=== PATIENT | female | born 1990 | race Caucasian/White ===

== ENCOUNTER 2019-06-03 14:59 | Emergency (ER) | payer OTHER, SELFPAY ==
[2019-06-03 15:07] VITALS: BP 99/66; PULSE 100; RESP 14; TEMP 36.8; O2SAT 97
--- NOTE | 2019-06-03 15:07 | ED.URI ---
HPI - URI/Sore Throat General Chief Complaint: Upper Respiratory Infection Stated Complaint: sinus infection Time Seen by Provider: 06/03/19 15:14 Source: patient and RN notes reviewed Mode of arrival: ambulatory Limitations: no limitations History of Present Illness HPI Narrative: 20-year-old female presents with concern for 2-week history of head congestion, facial and teeth pain, ear pressure, headache. Reports she had flu symptoms approximately 2 weeks ago that have mostly resolved besides her sinus symptoms. She reports [id number] medications are not working MD elicited complaint: nasal congestion Related Data Allergies Allergy/AdvReac Type Severity Reaction Status Date / Time No Known Allergies Allergy Unverified 04/20/18 05:16 Review of Systems Review of Systems: Narrative: CONSTITUTIONAL: Denies malaise, chills, sweats, or fever. EYES: Denies visual changes, redness, or discharge. ENT: Reports rhinorrhea, congestion, sinus pain, otalgia and sore throat. CARDIOVASCULAR: Denies chest pain, palpitations, or edema. RESPIRATORY: Denies cough or dyspnea. GASTROINTESTINAL: Denies abdominal pain, nausea, vomiting, diarrhea SKIN: Denies rash or itching. MUSCULOSKELETAL: Denies myalgia. NEUROLOGIC: Report headache. All systems reviewed & are unremarkable except as noted in HPI and below PMFSH Family History Family History (Updated 11/14/14 @ 10:30 by DOCTOR UNKNOWN) Father Hypertension Grandparent Diabetes mellitus Social History Social History Alcohol intake: current Comments At time of signature, agree with nursing past medical, surgical, social and family history. There is no relevant family history pertinent to the presenting complaint Exam Narrative: Exam Narrative: GENERAL: Well-appearing, well-nourished, and in no acute distress. HEAD: Normocephalic EYES: PERRLA, conjunctivae clear ENT: Nares clear, turbinates edematous and erythematous, purulent discharge, sinus tenderness. Mucous membranes moist. TM pearly rock with dull light reflex bilaterally; no tragal tenderness. Oropharynx not erythematous without lesions. Tonsils not enlarged and without exudate, no drooling, no hoarseness, no trismus. NECK: Supple. No lymphadenopathy CHEST: Clear to auscultation, breath sounds equal. No wheezing, rhonchi, rales, or stridor. No respiratory distress, speaks in full sentences. HEART: Regular rate and rhythm. No murmur heard. Normal peripheral pulses. SKIN: Warm, dry, no rash. NEURO: Alert and oriented x3. PSYCH: Normal mood and affect Course Course Emergency Course: Patient is aware of diagnosis, understands and agrees to treatment plan. Anticipatory guidance given. Patient agrees to follow-up as directed and is aware of reasons to seek care at the emergency department. Portions of this record may have been created with voice recognition software Vital Signs Vital signs: Vital Signs Temperature 98.2 F 06/03/19 15:07 Pulse Rate 100 06/03/19 15:07 Respiratory Rate 14 06/03/19 15:07 Blood Pressure 99/66 L 06/03/19 15:07 Pulse Oximetry 97 06/03/19 15:07 Temperature 98.2 F 06/03/19 15:07 Pulse Rate 100 06/03/19 15:07 Respiratory Rate 14 06/03/19 15:07 Blood Pressure 99/66 L 06/03/19 15:07 Pulse Oximetry 97 06/03/19 15:07 Reviewed. MDM - URI/Sore Throat MDM Narrative Medical decision making narrative: Differential diagnosis considered: Strep pharyngitis, allergic rhinitis, upper respiratory tract infection, sinusitis, rhinosinusitis, nasopharyngitis. viral pharyngitis, otitis media, otitis externa, pneumonia, bronchitis, viral cough syndrome, viral syndrome, and influenza. Exam findings show no acute concerns or changes; patient is non-toxic appearing and is in no distress. Patient is appropriate for outpatient treatment and follow-up. Critical Care Time Critical Care Time Critical Care Time: No Discharge Plan Discharge Clinical Impression: Acute bacterial sin
== END 2019-06-03 15:20 | disposition home or self-care (01) ==
PROVIDERS: Emergency Provider Nurse Practitioner
DX: J01.90 Acute sinusitis, unspecified (principal)
CPT/HCPCS: 99213; G0463

== ENCOUNTER 2020-01-21 19:26 | Emergency (ER) | payer OTHER, SELFPAY ==
--- NOTE | ~2020-01-21 | XR_ITS ---
EXAMINATION: XR knee RT 3V EXAM DATE: 01/21/2020 19:50 INDICATION: Initial encounter following injury, with pain of the right knee. TECHNIQUE: Right knee lateral, frontal AP, frontal PA tunnel, sunrise projections. There is no prior study for comparison. FINDINGS: There is acute closed posttraumatic horizontally oriented fracture through the inferior papa e of the patella, with about 3 mm distraction. Small to moderate-sized knee joint lipohemarthrosis. T here is overlying soft tissue swelling. This finding has been indicated, marked on the examination fo r review, clinical correlation. No other acute findings. IMPRESSION: Acute right patellar fracture. Reviewed, dictated and finalized at location A.
--- NOTE | 2020-01-21 19:30 | PC.NURSE ---
PT TAKEN TO RADIOLOGY AND ROOM IN WHEELCHAIR
[2020-01-21 19:31] VITALS: BP 119/77; PULSE 87; RESP 16; TEMP 37.2; O2SAT 100
--- NOTE | 2020-01-21 19:32 | ED.LOWEXIN ---
HPI - Extremity Injury (Lower) General Chief Complaint: Extremity Injury, Lower Stated Complaint: right leg pain due to fall Time Seen by Provider: 01/21/20 19:32 Source: patient Mode of arrival: ambulatory Limitations: no limitations History of Present Illness HPI Narrative: Jillian Chiu is a 29 yo female with no PMH fell on way uphill carrying empty car seat when foot got caught in shoe loop. Fell directly on R knee. Pain is 10/10, swollen medial side patella, unable to stand or bend knee Related Data Home Medications Medication Instructions Recorded Confirmed etonogestrel-ethinyl estradiol 1 vag ring VAGINAL MONTHLY 01/21/20 01/21/20 Allergies Allergy/AdvReac Type Severity Reaction Status Date / Time No Known Allergies Allergy Verified 01/21/20 19:37 Review of Systems Review of Systems: Narrative: CONSTITUTIONAL: Denies fever, chills, sweats. EYES: Denies visual changes, redness, discharge. ENT: Denies rhinorrhea, congestion, sore throat, otalgia. CARDIOVASCULAR: Denies chest pain, palpitations, edema. RESPIRATORY: Denies dyspnea, wheezing, cough GASTROINTESTINAL: Denies abdominal pain, nausea, vomiting, diarrhea. GENITOURINARY: Denies dysuria, hematuria, abnormal discharge SKIN: Denies rash or itching. NEUROLOGIC: Denies numbness, or focal weakness. PSYCHIATRIC: Denies anxiety or depression. R patellar pain and effusion PMFSH Past Medical History Medical History No acute medical problems Family History Family History Father Hypertension Grandparent Diabetes mellitus Social History Social History (Updated 01/21/20 @ 19:42 by Carlie Avalos CNP) Smoking status: Current every day smoker Tobacco type: e-cigarettes/vaping Alcohol intake: current Comments At time of signature, I agree with nursing past medical, surgical, social and family history. There is no relevant family history pertinent to the presenting complaint. Exam Narrative: Exam Narrative: GENERAL: This is a well-nourished, well-developed patient, in moderate distress. HEAD: normocephalic, atraumatic. EYES: Sclera clear/white. Vision is grossly intact. EARS: External ears normal, Hearing grossly intact. NOSE: External nose normal without nasal discharge, nares without redness, no rhinorrhea. THROAT: Mucous membranes moist, NECK: Neck supple, CARDIOVASCULAR: Tachycardic rate and rhythm without murmurs, gallops, or rubs. RESPIRATORY: Clear to auscultation. Breath sounds equal bilaterally. No wheezes, rales, or rhonchi. GASTROINTESTINAL: Abdomen soft, SKIN: warm, intact with no suspicious lesions or rash, good texture and turgor. NEURO: awake, alert, and oriented to person, place and time. There were no obvious focal neurologic abnormalities. Steady gait EXTREMITIES: NR knee pain with medial patellar edema, painful to touch, unable to bend knee- 2+ pedal pulses BACK: Nontender without deformity Course Course Emergency Course: The patient express care for phone to right patella X-ray done- result: acute R patellar fracture Patient continues ice on the wrist immobilizer with crutches Pain medication- hydrocodone D[facility]ed [facility] and her Follow-up with orthopedics on Friday Vital Signs Vital signs: Vital Signs Temperature 99 F 01/21/20 19:31 Pulse Rate 87 01/21/20 19:31 Respiratory Rate 16 01/21/20 19:31 Blood Pressure 119/77 01/21/20 19:31 Pulse Oximetry 100 01/21/20 19:31 Temperature 99 F 01/21/20 19:31 Pulse Rate 87 01/21/20 19:31 Respiratory Rate 16 01/21/20 19:31 Blood Pressure 119/77 01/21/20 19:31 Pulse Oximetry 100 01/21/20 19:31 MDM - Extremity Injury (Lower) Differential Diagnosis Differential diagnosis: Likely fracture of hip, ankle fracture and other (patellar fracture vs patellar effusion) Discharge Plan Discharge Clinical Impression: E
== END 2020-01-21 20:12 | disposition home or self-care (01) ==
PROVIDERS: Emergency Provider Nurse Practitioner; PCP Internal Medicine
DX: S82.031A Displaced transverse fracture of right patella, initial encounter for closed fracture (principal); W01.0XXA Fall on same level from slipping, tripping and stumbling without subsequent striking against object, initial encounter; M25.461 Effusion, right knee; F17.200 Nicotine dependence, unspecified, uncomplicated
CPT/HCPCS: 73562; 99213; G0463; L1830

== ENCOUNTER 2020-02-20 10:40 | Emergency (ER) | payer OTHER, SELFPAY ==
[2020-02-20 10:49] VITALS: BP 108/59; PULSE 78; RESP 20; TEMP 36.9; O2SAT 100
--- NOTE | 2020-02-20 11:00 | ED.GENADULT ---
HPI - General Adult General Chief complaint: Ear Stated complaint: ear pressure Time Seen by Provider: 02/20/20 11:00 Source: patient and RN notes reviewed Mode of arrival: ambulatory Limitations: no limitations History of Present Illness HPI narrative: 29-year-old female complains of bilateral decrease hearing, pressure, clogged feeling, and intermittent dizziness and headache (not the worst of her life) for the past 2 days. Jillian says she was treated at local hospital ED on 02/18/20 for dizziness released with diagnosis of Vertigo on Meclizine and Zofran with some relief. Symptoms continues to increase with ear pressure and clogging feeling. Denies ear itching, ear trauma, trauma to head, syncopal episodes, altered vision, altered speech, confusion, or seizure activity. Denies recent URI symptoms. Exacerbating factors consist of changing position too fast turning head from side to side too fast. Relieving factors is sitting still. No facial swelling. No rhinorrhea and nasal congestion. No high fevers, sore throat, drooling, neck or throat swelling. No chest pain or shortness of breath. Denies nausea, vomiting, and abdominal pain. Tolerating liquids well. Remains active. Denies being , LMP 02/18/20. The patient reports she have not been diagnosed with COVID-19. The patient reports she is not waiting for the results of a COVID-19 lab test. The patient reports she do not have chills, weakness, or fatigue. The patient reports she do not have a new or worsening cough or shortness of breath. The patient reports she do not have any loss of taste or diarrhea. Denies recent traveling. Denies concerns for COVID-19 or exposures been home with limited outdoor exposure except for essential household needs, work, and return home. At this time, patient is not suspected of having COVID-19. Some parts of this dictation were generated by voice recognition software and may contain typographical and/or grammatical inaccuracies. Related Data Home Medications Medication Instructions Recorded Confirmed meclizine 25 mg PO TID PRN 02/20/20 02/20/20 ondansetron HCl 4 mg PO QID PRN 02/20/20 02/20/20 Allergies Allergy/AdvReac Type Severity Reaction Status Date / Time No Known Allergies Allergy Verified 02/20/20 10:59 Review of Systems Review of Systems: Narrative: CONSTITUTIONAL: Denies fever, chills, sweats. EYES: Denies visual changes, redness, discharge. ENT: Complains of bilateral ear pressure, clogged. Denies rhinorrhea, congestion, sore throat, otalgia, tinnitus, decrease hearing. CARDIOVASCULAR: Denies chest pain, palpitations, edema. RESPIRATORY: Denies dyspnea, wheezing, cough. GASTROINTESTINAL: Denies abdominal pain, nausea, vomiting, diarrhea. GENITOURINARY: Denies dysuria, hematuria, abnormal discharge. SKIN: Denies rash or itching. MUSCULOSKELETAL: Denies acute back pain, joint pain, or myalgia. NEUROLOGIC: Denies numbness or focal weakness. Complains of intermittent dizziness, [place]. PSYCHIATRIC: Denies anxiety or depression. All systems reviewed & are unremarkable except as noted in HPI and below. [facility] [place] Past Medical History Medical History (Updated 02/20/20 @ 11:58 by DWIGHT Cruz) Closed fracture of distal pole of patella Hx of migraines No acute medical problems Right patella fracture Surgical History Surgical History (Updated 02/20/20 @ 11:58 by DWIGHT Cruz) No significant past surgical history Family History Family History (Updated 02/20/20 @ 11:59 by DWIGHT Cruz) Father Hypertension Grandparent Diabetes mellitus Mother Alive and well Social History Social History (Updated 02/20/20 @ 12:01 by DWIGHT Cruz) Smoking status: Current every day smoker Tobacco type: e-cigarettes/vaping Second hand tobacco smoke exposure: Yes (Spouse) Alcohol intake: current Substance use: never Living arrangements: with family Additional living arran
[2020-02-20 11:15] VITALS: BP 101/70; PULSE 72
[2020-02-20 11:19] VITALS: BP 97/63; PULSE 77
[2020-02-20 11:21] VITALS: BP 104/75; PULSE 82
== END 2020-02-20 11:25 | disposition home or self-care (01) ==
PROVIDERS: Emergency Provider Nurse Practitioner Family; PCP Internal Medicine
DX: H65.191 Other acute nonsuppurative otitis media, right ear (principal); H81.10 Benign paroxysmal vertigo, unspecified ear; F17.200 Nicotine dependence, unspecified, uncomplicated
CPT/HCPCS: 99213; G0463

== ENCOUNTER 2022-03-04 15:04 | Emergency (ER) | payer BC, OTHER, SELFPAY ==
[2022-03-04 15:12] VITALS: BP 97/78; PULSE 120; RESP 14; TEMP 37.4; O2SAT 98
--- NOTE | 2022-03-04 16:04 | ED.URI ---
HPI - URI/Sore Throat General Chief Complaint: Upper Respiratory Infection Stated Complaint: fever chest hurts thru to her back Time Seen by Provider: 03/04/22 16:05 Source: patient, RN notes reviewed and old records reviewed Mode of arrival: ambulatory Limitations: no limitations History of Present Illness HPI Narrative: 31-year-old female presents to the [facility] with complaints of fever and chest discomfort with deep breathing and coughing. States it started this morning. No treatment prior to arrival. Related Data Home Medications Medication Instructions Recorded Confirmed dextroamphetamine-amphetamine ER PO 03/04/22 10 mg 24hr capsule,extend release mirtazapine 7.5 mg tablet mg 03/04/22 Allergies Allergy/AdvReac Type Severity Reaction Status Date / Time No Known Allergies Allergy Verified 02/20/20 10:59 Review of Systems Review of Systems: All systems reviewed & are unremarkable except as noted in HPI and below Constitutional: Constitutional: Reports no additional constitutional complaints, Denies body ache(s), Denies chills, Denies fever(s) and Denies headache(s) Eyes: Eyes: Reports no additional eye complaints ENT: Reports system reviewed and no additional complaints, except as documented and Denies headache(s) Cardiovascular: Cardiovascular: Reports no additional cardiovascular complaints, Denies chest pain and Denies dyspnea Respiratory: Respiratory: Reports as per HPI, Reports cough and Denies dyspnea Gastrointestinal: Gastrointestinal: Reports no additional gastrointestinal complaints and Denies abdominal pain Musculoskeletal: Musculoskeletal: Reports no additional musculoskeletal complaints Integumentary/Breasts: Skin/Breast: Reports system reviewed and no additional complaints, except as docu Neurologic: Reports system reviewed and no additional complaints, except as documented and Denies headache(s) Psychiatric: Psychiatric: Reports no additional psychiatric complaints Allergic/Immunologic: Allergic/Immunologic: Reports no additional allergic/immunologic complaints [facility] Past Medical History Medical History Closed fracture of distal pole of patella Hx of migraines No acute medical problems Right patella fracture Surgical History Surgical History No significant past surgical history Family History Family History Father Hypertension Grandparent Diabetes mellitus Mother Alive and well Social History Social History Smoking status: Current every day smoker Tobacco type: e-cigarettes/vaping Second hand tobacco smoke exposure: Yes (Spouse) Alcohol intake: current Substance use: never Additional living arrangements comments: Spouse and 2-year-old child 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 There is no relevant family history pertinent to the patient complaint. Exam Const: General: cooperative, healthy appearing, comfortable, no acute distress, well developed, alert and well nourished Nutritional Appearance: well nourished Orientation/consciousness: patient oriented x3 Limitations: no limitations HENMT: Head: normal to inspection Ears: external ears normal Face/Nose/Sinus: Normal external nose present, Normal nares present, Normal nasal mucous membranes and turbinates present, Nasal discharge present clear bilateral and normal facial exam Face and sinus: normal facial exam Mouth: Yes Normal oral and palatal mucosa present, Yes lip normal and Yes moist
== END 2022-03-04 16:25 | disposition home or self-care (01) ==
PROVIDERS: Emergency Provider Nurse Practitioner; PCP Hospitalist
DX: R50.9 Fever, unspecified (principal); R07.9 Chest pain, unspecified; R05.9 Cough, unspecified; F17.209 Nicotine dependence, unspecified, with unspecified nicotine-induced disorders
CPT/HCPCS: 87081; 87147; 99212; G0463

== ENCOUNTER 2022-12-17 12:36 | Emergency (ER) | payer BC, OTHER, SELFPAY ==
[2022-12-17 13:00] VITALS: BP 98/62; PULSE 79; RESP 16; TEMP 37.8; O2SAT 98
--- NOTE | 2022-12-17 14:11 | ED.GENADULT ---
HPI - General Adult General Chief complaint: Upper Respiratory Infection Stated complaint: Sore Throat Source: patient Mode of arrival: ambulatory Limitations: no limitations History of Present Illness HPI narrative: Patient presents for evaluation of sore throat since last week. She has a history of strep pharyngitis and this feels similar. She indicates her daughter and her niece lives with her both currently have strep. No fever, chills, nausea, vomiting. She does have an occasional cough. No shortness of breath. She has no other acute complaints. Related Data Home Medications Medication Instructions Recorded Confirmed dextroamphetamine-amphetamine ER PO 03/04/22 10 mg 24hr capsule,extend release mirtazapine 7.5 mg tablet mg 03/04/22 mirtazapine 15 mg tablet mg 12/17/22 spironolactone 100 mg tablet mg 12/17/22 spironolactone 50 mg tablet mg 12/17/22 tretinoin 0.05 % topical cream applic topical 12/17/22 Allergies Allergy/AdvReac Type Severity Reaction Status Date / Time No Known Allergies Allergy Verified 12/17/22 12:46 Review of Systems Review of Systems: CONSTITUTIONAL: Denies fever, chills, or sweats. EYES: Denies visual changes, redness, or discharge. ENT:Reports sore throat. Denies rhinorrhea, congestion, or otalgia. CARDIOVASCULAR: Denies chest pain, palpitations, or edema. RESPIRATORY: Reports mild occasional cough. Denies shortness of breath GASTROINTESTINAL: Denies abdominal pain, nausea, vomiting, or diarrhea. GENITOURINARY: Denies dysuria or hematuria. SKIN: Denies rash or itching. MUSCULOSKELETAL: Denies back pain, joint pain, or myalgia. NEUROLOGIC: Denies headache, numbness, dizziness, or weakness. PSYCHIATRIC: Denies anxiety or depression. [facility] Past Medical History Medical History Closed fracture of distal pole of patella Hx of migraines No acute medical problems Right patella fracture Surgical History Surgical History No significant past surgical history Family History Family History Father Hypertension Grandparent Diabetes mellitus Mother Alive and well Social History Social History Smoking status: Current every day smoker Tobacco type: e-cigarettes/vaping Second hand tobacco smoke exposure: Yes (Spouse) Alcohol intake: current Substance use: never Living arrangements: with family Additional living arrangements comments: Spouse and 2-year-old child Occupation/Education: occupation 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 HEAD: Normocephalic, atraumatic. EYES: PERRLA and EOMI. ENT: Nares clear, no rhinorrhea or epistaxis. Mucous membranes moist. Oropharynx without tonsillar hypertrophy exudate or other lesions. Bilateral TMs pearly rock nonbulging NECK: Supple. No adenopathy or masses. No carotid bruits or JVD CHEST: Clear to auscultation. No respiratory distress. No wheezes rales or rhonchi HEART: Regular rate and rhythm. No murmur heard. Normal peripheral pulses. ABDOMEN: Soft, nontender, nondistended, normal active bowel sounds. EXTREMITIES: Normal range of motion. No edema. SKIN: Warm, dry, no rash. NEURO: No focal deficits. Alert and oriented x3. PSYCH: Normal mood and affect. Course Course Emergency Course: This is a 32-year-old female who presented for evaluation of sore throat. Rapid strep was negative. However she has had several strep exposures and her current symptoms are consistent with those previously experience with strep
== END 2022-12-17 14:18 | disposition home or self-care (01) ==
PROVIDERS: Emergency Provider Nurse Practitioner; PCP Hospitalist
DX: J02.9 Acute pharyngitis, unspecified (principal); F17.219 Nicotine dependence, cigarettes, with unspecified nicotine-induced disorders; Z79.899 Other long term (current) drug therapy
CPT/HCPCS: 87081; 87147; 87880; 99213; G0463

== ENCOUNTER 2023-01-15 09:12 | Outpatient (CLI) | payer BC, OTHER, SELFPAY ==
--- NOTE | ~2023-01-15 | US_ITS ---
US abdomen limited INDICATION: Right upper quadrant pain PROCEDURE: Realtime right upper abdominal ultrasound. COMPARISON: No prior studies for comparison. FINDINGS: The pancreas is normal without focal mass or pancreatic ductal dilation. Liver echotexture is normal without focal mass or intrahepatic biliary dilatation. There is normal directional flow i n the portal vein. The gallbladder is normal without stones, gallbladder wall thickening or pericholecystic fluid. Comm on bile duct measures 3 mm. No sonographic Pepe's sign. IMPRESSION: 1: Normal limited abdominal ultrasound. Reviewed, dictated and finalized at location B.
== END 2023-01-15 09:13 | disposition home or self-care (01) ==
PROVIDERS: PCP Hospitalist; Visit Provider Hospitalist
DX: R10.11 Right upper quadrant pain (principal)
CPT/HCPCS: 76705

== ENCOUNTER 2023-06-05 09:44 | Outpatient (CLI) | payer BC, OTHER, SELFPAY ==
--- NOTE | ~2023-06-05 | US_ITS ---
EXAMINATION: US pelvic complete DATE: 06/05/2023 10:43 INDICATION: Left lower quadrant abdominal pain. TECHNIQUE: Multiple transabdominal and transvaginal sonographic images of the pelvis were obtained. COMPARISON: None. FINDINGS: The uterus measures measures 8.4 x 3.6 x 5.7 cm. There is no free fluid in the pelvis. The endometria l complex measures 5 mm in thickness. There is an intrauterine device in expected position. in thickn ess. The right ovary measures 3.2 x 1.3 x 3.0 cm. The left ovary measures 3.0 x 2.0 x 2.8 cm. There i s normal vascular flow in the ovaries. IMPRESSION: 1. Intrauterine device in expected position. 2. No etiology for the patient's symptoms. Reviewed, dictated and finalized at location A. [facility]
== END 2023-06-05 09:45 | disposition home or self-care (01) ==
LOC: ANHIMG 09:49
PROVIDERS: PCP Hospitalist; Visit Provider Advanced Practice Midwife
DX: R10.32 Left lower quadrant pain (principal); T83.32XA Displacement of intrauterine contraceptive device, initial encounter
CPT/HCPCS: 76856

== ENCOUNTER 2025-01-24 12:04 | Emergency (ER) | payer BC, SELFPAY ==
--- NOTE | 2025-01-24 12:05 | ED_ITS ---
HPI - URI/Sore Throat General Chief Complaint: Upper Respiratory Infection Stated Complaint: throat Time Seen by Provider: 01/24/25 12:05 Source: patient Mode of arrival: ambulatory Limitations: no limitations History of Present Illness HPI Narrative: Janette is a 34-year-old female patient presenting to the clinic today with complaints of a sore throat x4 days. She reports she lost her voice 1 week ago. Has not taken any medications to treat her symptoms. Rates pain currently a 6/10 when swallowing/talking. Denies any chest pain or shortness of breath. Denies nasal drainage, cough, fevers, chills, or body aches. MD elicited complaint: sore throat and nasal congestion Related Data Home Medications ?Medication ?Instructions ?Recorded ?Confirmed ?Last Taken ?Type mirtazapine 7.5 mg tablet mg 03/04/22 Unknown History spironolactone 100 mg tablet mg 12/17/22 Unknown Hist ory spironolactone 50 mg tablet mg 12/17/22 Unknown Histo ry tretinoin 0.05 % topical cream applic topical 12/17/22 Unknown History Allergies Allergy/AdvReac Type Severity Reaction Status Date / Time No Known Allergies Allergy Verified 12/17/22 12:46 Review of Systems Review of Systems: Pertinent positives per HPI. Patient denies any fever, chills, rash, headache, visual changes, dizziness, cough, shortness of breath, chest pain, palpitations, nausea, vomiting, diarrhea, constipation, abdominal pain, or any urinary issues. [facility] Past Medical History Medical History Hx of migraines Right patella fracture Closed fracture of distal pole of patella No acute medical problems Surgical History Surgical History No significant past surgical history Family History Family History Father Hypertension Grandparent Diabetes mellitus Mother Alive and well Social History Social History Smoking status: Current every day smoker Tobacco type: e-cigarettes/vaping Second hand tobacco smoke exposure: Yes (Spouse) Alcohol intake: current Substance use: never Living arrangements: with family Additional living arrangements comments: Spouse and 2-year-old child Occupation/Education: occupation 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 There is no relevant family history pertinent to the patient complaint. Exam Narrative: General: Well-developed, well nourished, in no apparent distress Head: Normocephalic, atraumatic Eyes: Pupils equally round and reactive to light bilaterally, EOM intact, sclera and conjunctive clear, no discharge, lids normal Ears: TMs intact and clear, ear canals clear, no drainage, grossly hearing normal. Nose: Nares patent, no discharge, no inflammation, no sinus tenderness. Mouth: Oral pharynx red without lesions or masses, good dentition, MMM. Neck: Supple, trachea midline, no enlargement of anterior or posterior cervical nodes, no thyroid masses or goiter palpable. Cardio: Regular rate and rhythm, s1 and s2 normal, no murmur appreciated. Resp: Clear to auscultation bilaterally, no rhonchi, rales, wheezing or rubs Course Course Emergency Course: Portions of this record may have been created with voice recognition software. Level of Care: Express Care Visit Vital Signs Vital signs: Vital Signs Temperature 36.8 C 01/24/25 12:17 Pulse Rate 87 01/24/25 12:17 Respiratory Rate 16 01/24/25 12:17 Blood Pressure 126/78 01/24/25 12:17 Pulse Oximetry 100 01/24/25 12:17 Temperature 36.8 C 01/24/25 12:17 Pulse Rate 87 01/24/25 12:17 Respiratory Rate 16 01/24/25 12:17 Blood Pressure 126/78 01/24/25 12:17 Pulse Oximetry 100 01/24/25 12:17 Vital signs reviewed MDM - URI/Sore Throat MDM Narrative Medical decision making narrative: At the time of visit patient is resting comfortably on the exam table. Patient appears to be nontoxic. Complaints of a sore throat x4 days. She reports she lost her voice 1 week ago. Has not taken any medications to treat her symptoms. Rates pain currently a 6/10 when swallowing/talking. Denies any chest pain or shortness of breath. Denies fevers, chills, body aches. On exam patient is TMs intact and clear, no nasal drainage, oral pharynx red with mild tonsillar enlargement-no exudate, no cervical lymphadenopathy, lung sounds are clear, heart rates regular rate and rhythm. Strep test was ordered. Patient asked nurse about COVID testing and nurse offered to do it and patient declined. Labs: Strep test was negative in the clinic today. We will send strep for culture. Plan: I suspect patient has viral pharyngitis. Work note was given. Supportive measures were discussed with the patient and they voiced understanding discharge instructions and agrees to treatment plan. Return precautions reviewed Differential Diagnosis Differential diagnosis: Likely upper respiratory infection, otitis media, sinusitis, viral infection, bronchitis, influenza, pharyngitis and other (COVID) Discharge Plan Discharge Clinical Impression: Pharyngitis Qualifiers: Pharyngitis/tonsillitis etiology: unspecified etiology Qualified Code(s): J02.9 - Acute pharyngitis, unspecified Patient Disposition: Home Condition: Stable Instructions: Antibiotic Form, Pharyngitis (ED) Additional Instructions: Strep test was negative in the clinic today. We will send strep for culture and if this comes back positive we will contact him place you on antibiotics at that time. Increase fluids and stay well hydrated May take Tylenol or motrin as directed on bottle for pain/fever May use Flonase 1 spray in each nare daily May take OTC antihistamines such as Zyrtec or Claritin daily as directed on bottle May apply Vicks vapor rub to chest to open sinuses Sinus rinses for congestion Cepacol spray, cough drops, throat lozenges, warm tea with honey/lemon, gargle salt water to soothe throat BRAT diet for diarrhea Clear liquids x 24 hours then advance as tolerated for nausea/vomiting Go to the ED if you develop a worsening in your condition- high fever not controlled by Tylenol or Motrin, dehydration, weakness, lethargy, shortness of breath, or chest pain. Follow up with your PCP in 3-5 days if symptoms persist. Patient Language: Marshallese Prescriptions: No Action mirtazapine 7.5 mg tablet spironolactone 100 mg tablet tretinoin 0.05 % cream TOPICAL spironolactone 50 mg tablet Follow-up/Referrals: Lily Sheppard, [employer] [Primary Care Provider, Hospitalist] Stand Alone Forms: Work/School Release IP Time of Disposition: 12:27 Quality NIHSS Nursing Documentation ED NIHSS nursing documentation: reviewed/agree
[2025-01-24 12:17] VITALS: BP 126/78; PULSE 87; RESP 16; TEMP 36.8; O2SAT 100
[2025-01-24 12:34] LABS: EDSTREPNEGPOS1 Negative (Negative)
== END 2025-01-24 12:31 | disposition home or self-care (01) ==
LOC: EXPTROY 12:11
PROVIDERS: Emergency Provider Nurse Practitioner Family; PCP Nurse Practitioner Family
DX: J02.0 Streptococcal pharyngitis (principal); F17.290 Nicotine dependence, other tobacco product, uncomplicated
CPT/HCPCS: 87081; 87880; 99213; G0463